=== PATIENT | female | born 2000 | race Two or more races ===

== ENCOUNTER 2023-03-15 20:34 | Outpatient (CLI) | payer OTHER ==
[~2023-03-15 20:34] MED LIST: PRENATAL TABLE1 EAC1 PO
[2023-03-15 20:56] LABS: URINE APPEARANCE Clear; URINE BILIRRUBIN Negative (NEGATIVE); URINE BLOOD Negative; URINE COLOR Yellow; URINE GLUCOSE Negative (NEGATIVE); URINE LEUKOCYTE Small; URINE NITRATE Negative; URINE PROTEIN Negative (NEGATIVE)
[2023-03-15 20:57] LABS: URINE BACTERIA 1305.1 uL (0.0-1933); URINE EPITHELIAL CELLS 12.6 uL (0.0-38.8); URINE RBC 8.3 uL (0.0-20.8); URINE WBC 22.7 uL (0.0-23.2)
[2023-03-15 21:01] LABS: HEMATOCRIT 29.5 % (36.0-45.00); HEMOGLOBIN 9.5 g/dL (12.0-15.00); MEAN CELL VOLUME 88.6 fL (80.00-100.00); MEAN CORPUSCULAR HEMOGLOBIN 28.6 pg (27.00-32.0); MEAN CORPUSCULAR HGB CONC 32.2 g/dl (32.0-36.0); PLATELET COUNT 227 K/uL (150-450); RED BLOOD COUNT 3.34 M/uL (4.00-6.00); RED CELL DISTRIBUTION WIDTH 14.5 % (11.5-14.5)
== END 2023-03-16 11:24 | disposition home or self-care (01) ==
LOC: OBS/DEL 20:34 → LDR 21:23 → OBS/DEL 21:36
PROVIDERS: Obstetrics & Gynecology; ATTEND Obstetrics & Gynecology Obstetrics
DX: O26.893 Other specified pregnancy related conditions, third trimester (principal); O99.013 Anemia complicating pregnancy, third trimester; Z3A.49 Greater than 42 weeks gestation of pregnancy

== ENCOUNTER 2023-03-21 07:51 | Inpatient (IN) | payer OTHER ==
[~2023-03-21] VITALS: Ht 152.4 cm; Wt 3.6 kg
[2023-03-21 09:47] LABS: PH,URINE 7.5 (5.0-8.0); URINE APPEARANCE Clear; URINE BILIRRUBIN Negative (NEGATIVE); URINE BLOOD Negative; URINE COLOR Yellow; URINE GLUCOSE Negative (NEGATIVE); URINE LEUKOCYTE Trace; URINE NITRATE Negative; URINE PROTEIN Negative (NEGATIVE); URINE UROBILINOGEN 0.2 E.U./dl
[2023-03-21 09:52] LABS: URINE BACTERIA 4298.7 uL (0.0-1933); URINE EPITHELIAL CELLS 50.6 uL (0.0-38.8); URINE RBC 13.7 uL (0.0-20.8); URINE WBC 63.6 uL (0.0-23.2)
[2023-03-21 09:55] LABS: HEMATOCRIT 29.8 % (36.0-45.00); MEAN CELL VOLUME 86.9 fL (80.00-100.00); MEAN CORPUSCULAR HEMOGLOBIN 29.1 pg (27.00-32.0); MEAN CORPUSCULAR HGB CONC 33.5 g/dl (32.0-36.0); PLATELET COUNT 211 K/uL (150-450); RED BLOOD COUNT 3.43 M/uL (4.00-6.00); RED CELL DISTRIBUTION WIDTH 14.2 % (11.5-14.5)
[2023-03-21 10:31] LABS: INR < 0.93; PARTIAL THROMBOPLASTIN TIME 29.1 SECONDS (22.0-34.0); PROTHROMBIN TIME 9.6 SECONDS (9.0-11.5)
[2023-03-21 10:50] LABS: ALBUMIN 2.6 gm/dL (3.4-5.0); BILIRUBIN TOTAL 0.24 mg/dL (0.3-1.2); CALCIUM 9.1 mg/dL (8.5-10.1); CREATININE SERUM 0.54 mg/dL (0.55-1.02); GFR 142.51; GLOBULINA 3.3 G/DL (2.4-3.5); POTASSIUM 3.92 mEq/L (3.5-5.1); TOTAL PROTEIN 5.9 gm/dL (6.4-8.2)
[2023-03-22 21:16] LABS: ABG PH 7.239 (7.35-7.45); ABG pCO2 51.8 mmHg (35-45)
[2023-03-22 21:17] LABS: BASE EXCESS -6.2 mmol/l; BICARBONATE 21.7 mmol/l (23-25); SaO2 8.3 %; Tco2 23.3 mmol/l; o2 21 %
== END 2023-03-25 15:40 | disposition home or self-care (01) | DRG 788 ==
LOC: OB/GYN 07:51 → LDR 07:51 → O/R 09:14 → LDR 09:15 → O/R 03-22 16:08 → LDR 03-22 16:09 → OB/GYN 03-22 21:01
PROVIDERS: ADMIT Obstetrics & Gynecology Obstetrics; ATTEND Obstetrics & Gynecology Obstetrics
PROC: 3E0P7VZ Introduction of Hormone into Female Reproductive, Via Natural or Artificial Opening (ICD-10-PCS; 2023-03-21)
PROC: 4A1HXCZ Monitoring of Products of Conception, Cardiac Rate, External Approach (ICD-10-PCS; 2023-03-21)
PROC: 3E033VJ Introduction of Other Hormone into Peripheral Vein, Percutaneous Approach (ICD-10-PCS; 2023-03-22)
PROC: 10D00Z1 Extraction of Products of Conception, Low, Open Approach (ICD-10-PCS; principal; 2023-03-22 20:00)
DX: O82 Encounter for cesarean delivery without indication (principal); O62.1 Secondary uterine inertia; Z3A.39 39 weeks gestation of pregnancy; Z37.0 Single live birth; Z20.822 Contact with and (suspected) exposure to COVID-19